=== PATIENT | male | born 1965 | race Caucasian/White ===

== ENCOUNTER 2019-04-04 18:35 | Emergency (ER) | payer MEDICAID ==
[2019-04-04 18:46] VITALS: BP 121/74; PULSE 89; RESP 18; TEMP 96.8
--- NOTE | 2019-04-04 18:51 | ED ---
General Adult HPI - General Stated complaint: rt knee injury Time Seen by Provider: 04/04/19 18:39 Source: patient, EMS Mode of arrival: EMS Limitations: no limitations - History of Present Illness Initial comments: Patient is a 54-year-old male presents emergency Department with right knee pain. Patient reports approximately 3 hours ago he was getting off his boat when he felt his knee "snap"and ever since he has trouble walking and weightbearing. Patient reports full range of motion but but has to perform H motion slowly. Patient states the knee feels "tight" rather than painful. Patient reports the pain is exacerbated with fast movement and alleviated at rest. Patient reports mild edema on the right knee but denies erythema or skin discoloration. Patient denies taking medication to alleviate the symptoms. - Related Data Home Medications Medication Instructions Recorded Confirmed No Known Home Medications 04/04/19 04/04/19 Allergies Allergy/AdvReac Type Severity Reaction Status Date / Time No Known Allergies Allergy Verified 04/04/19 18:46 Review of Systems ROS Statement: Those systems with pertinent positive or pertinent negative responses have been documented in the HPI. ROS Other: All systems not noted in ROS Statement are negative. Past Medical History Past Medical History: No Reported History History of Any Multi-Drug Resistant Organisms: None Reported Past Surgical History: Orthopedic Surgery Additional Past Surgical History / Comment(s): lt knee Past Psychological History: No Psychological Hx Reported Smoking Status: Never smoker Past Alcohol Use History: Occasional Past Drug Use History: None Reported General Exam Limitations: no limitations General appearance: alert, in no apparent distress Head exam: Present: atraumatic, normocephalic Eye exam: Present: normal appearance, PERRL, EOMI Pupils: Present: normal accommodation ENT exam: Present: normal exam, normal oropharynx, mucous membranes moist, TM's normal bilaterally, normal external ear exam Neck exam: Present: normal inspection, full ROM Respiratory exam: Present: normal lung sounds bilaterally Cardiovascular Exam: Present: regular rate, normal rhythm, normal heart sounds GI/Abdominal exam: Present: soft, normal bowel sounds Extremities exam: Present: normal inspection, full ROM (Only with slow movements.), tenderness (Tenderness with palpation along the medial aspect of the right knee), normal capillary refill, joint swelling (Mild swelling of right knee), other (+2 dorsalis pedis and posterior tibialis bilaterally) Back exam: Present: normal inspection, full ROM Neurological exam: Present: alert, oriented X3 Psychiatric exam: Present: normal affect, normal mood Skin exam: Present: warm, intact, normal color Course Vital Signs 04/04/19 18:43 Temperature 96.8 F L Pulse Rate 89 Respiratory 18 Rate Blood Pressure 121/74 O2 Sat by Pulse 95 Oximetry Procedures - Orthopedic Splinting/Casting Injury #1 Side: right Lower Extremity Injury Location: knee Lower Extremity Immobilizer: Mark wrap Medical Decision Making - Medical Decision Making Patient is a 54-year-old male presents emergency Department with right knee pain. X-ray of the right knee is indicative of tibial tubercle fragmentation. No fractures or dislocations are seen. Mark wrap was applied on the right knee. Patient advised to alternate Tylenol and ibuprofen for pain control. Patient advised to keep leg elevated and apply ice compress to minimize swelling. Strict return parameters were thoroughly discussed with patient who is understanding and agreeable. Patient advised to follow with orthopedics. Case discussed with physician. Disposition Clinical Impression: Knee pain, right Disposition: HOME SELF-CARE Condition: Stable Instructions (If sedation given, give patient instructions): Knee Pain (ED) Additional Instructions: Please follow up with orthopedics. Please return to emergency department if symptoms worsen. Alternate between Tylenol and ibuprofen for pain control. Keep leg elevated and apply ice Copperas to minimize swelling. Is patient prescribed a controlled substance at d/c from ED?: No Referrals: None,Stated [Primary Care Provider] - 1-2 days Time of Disposition: 19:10
--- NOTE | 2019-04-04 19:03 | XR ---
EXAMINATION TYPE: XR knee complete RT DATE OF EXAM: 04/04/2019 COMPARISON: NONE HISTORY: Knee pain TECHNIQUE: 3 views FINDINGS: There is fragmentation at the tibial tubercle. I see no fracture nor dislocation. There is no sign of joint effusion. Joint spaces are fairly normal. IMPRESSION: Old tibial tubercle osteochondrosis. No acute abnormality of the right knee.
== END 2019-04-04 19:30 | disposition home or self-care (01) ==
LOC: EC 18:35
DX: M25.561 Pain in right knee (principal); R93.7 Abnormal findings on diagnostic imaging of other parts of musculoskeletal system; M79.89 Other specified soft tissue disorders; X50.9XXA Other and unspecified overexertion or strenuous movements or postures, initial encounter; Y93.89 Activity, other specified; Y92.89 Other specified places as the place of occurrence of the external cause
CPT/HCPCS: 99283